=== PATIENT | male | born 1980 | race Hispanic/Latino ===

== ENCOUNTER → 2017-01-06 | Outpatient (CLI) | payer OTHER ==
--- NOTE | 2017-01-06 16:18 | REP ---
Scrotal ultrasound: There are no comparisons. The testes are normal size. Right testis is 4.3 x 1.9 x 3.0 cm. Left testis is 4.0 x 1.8-0.4 cm. There is a macrocalcification in the upper pole of the right testis. This could be post-traumatic or degenerative change. The right testis is otherwise homogeneous and unremarkable. The balloon there is a micro calcification in the upper pole of the left testis. The left testis is otherwise homogeneous and unremarkable. There are no testicular masses on the right or left. The right and left epididymal heads are normal size and otherwise unremarkable except for a tiny right epididymal head cyst and calcification. There is vascular flow in both testes with the Doppler resistive index of the intraparenchymal arteries on the right measuring 0.61 on the left 0.63. There are bilateral hydroceles. There are no varicoceles. Impression: Bilateral hydroceles. There is a single calcification in each testis as described. There are no testicular masses. Otherwise, negative scrotal ultrasound. Signed by Myke Davila MD 01/06/2017 04:10 P
== END | disposition home or self-care (01) ==
LOC: M SMT 14:52
PROVIDERS: ATTEND Nurse Practitioner Women's Health
DX: N50.819 Testicular pain, unspecified (principal); N43.3 Hydrocele, unspecified

== ENCOUNTER → 2017-03-15 | Outpatient (CLI) | payer OTHER | LOC: M SMT 14:41 | PROVIDERS: ATTEND Urology | DX: N50.812 Left testicular pain (principal) ==

== ENCOUNTER → 2017-07-10 | Outpatient (REF) | payer OTHER ==
[2017-07-10 19:36] LABS: MICROSCOPIC INDICATED? MAN YES (NO)
[2017-07-10 20:52] LABS: MICROSCOPIC EXAM PERFORMED
[2017-07-10 20:53] LABS: BACTERIA, URINE 0; HYALINE CAST, URINE NONE SEEN /lpf (0-1); RBC, URINE NONE SEEN /hpf (0-3); SQUAMOUS EPITHELIAL CELL URINE NONE SEEN /hpf (SMALL AMT); WBC, URINE NONE SEEN /hpf (0-3)
== END ==
LOC: M SMT 17:56
PROVIDERS: ATTEND Nurse Practitioner Women's Health
DX: N50.819 Testicular pain, unspecified (principal)
CPT/HCPCS: 81000; 87086; G0463

== ENCOUNTER → 2017-07-12 | Outpatient (CLI) | payer OTHER ==
--- NOTE | 2017-07-12 15:36 | REP ---
Scrotal ultrasound for bilateral testicular pain: Comparison is 01/06/2017. The testes are normal size. The right testis measures 4.5 x 1.8 x 2.8 cm. Left testis measures 3.9 x 1.9 x 2.4 cm. There is vascular flow in both testes with the Doppler resistive index of the intraparenchymal arteries on the right measuring 0.57, left 0.67. There are no testicular masses. There is a macrocalcification at the upper pole of the right testis , unchanged. Previously there was a micro calcification in the left testis. This is not identified on the study today. There are bilateral hydroceles as previously. The left hydrocele is larger. There are septations in the left hydrocele. This is nonspecific but may be related to prior infection or hemorrhage. Ultrasonography of the pampiniform plexus of the scrotum without and with Valsalva identifies no evidence of varicocele. Impression: There are bilateral hydroceles, hydrocele on the left is larger and the left hydrocele containing septations, possibly from previous infection or hemorrhage. There is vascular flow in both testes. There are no testicular masses. There is no evidence of varicocele. The epididymal heads are unremarkable. Signed by Myke Davila MD 07/12/2017 03:28 P
== END ==
LOC: M SMT 13:51
PROVIDERS: ATTEND Nurse Practitioner Women's Health
DX: N50.819 Testicular pain, unspecified (principal); N43.3 Hydrocele, unspecified

== ENCOUNTER 2018-01-27 19:21 | Emergency (ER) | payer OTHER | END 2018-01-27 20:46 | disposition home or self-care (01) | LOC: M ED 19:21 | DX: J35.8 Other chronic diseases of tonsils and adenoids (principal) | CPT/HCPCS: 99283 ==

== ENCOUNTER → 2018-03-08 | Outpatient (REF) | payer OTHER | LOC: M LAB REF 16:42 | DX: J35.8 Other chronic diseases of tonsils and adenoids (principal) | CPT/HCPCS: 87205 ==

== ENCOUNTER 2019-01-26 19:36 | Emergency (ER) | payer OTHER ==
[~2019-01-26] VITALS: Ht 188 cm; Wt 113.6 kg
[2019-01-26 19:36] VITALS: BP 149/87
--- NOTE | 2019-01-26 20:42 | REP ---
Clinical: Right ankle pain . Technique: AP, lateral, bilateral oblique views. Findings: No acute fracture or dislocation. Skeletal structures and joint spaces are intact and normal. Ankle mortise appears stable. No subcutaneous emphysema or radiodense foreign body. Impression: No acute fracture or dislocation. Electronically Signed by Janes Tran MD 01/26/2019 08:33 P
[2019-01-26] MEDS ORDERED: AMLO10TA PO (21:12)
[2019-01-26] MEDS ORDERED: BENA25CA4 PO (21:12)
[2019-01-26] MEDS ORDERED: INDO50CA PO (21:37)
[2019-01-26] MEDS ORDERED: INDOMETHACIN 25 MG CAP PO ONE (21:45)
== END 2019-01-26 21:50 | disposition home or self-care (01) ==
LOC: M ED 19:36
DX: M77.9 Enthesopathy, unspecified (principal)